=== PATIENT | male | born 1950 | race Caucasian/White ===

== ENCOUNTER 2020-06-25 19:52 | Emergency (ER) | payer MEDICARE, OTHER ==
[2020-06-25 20:12] VITALS: BP 175/83; PULSE 100; RESP 20; TEMP 98.6
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
== END 2020-06-25 21:25 | disposition home or self-care (01) ==
LOC: EC 19:52
DX: Z04.1 Encounter for examination and observation following transport accident (principal)
CPT/HCPCS: 71046; 99284